=== PATIENT | male | born 1955 | race Caucasian/White ===

== ENCOUNTER 2019-04-16 09:27 | Outpatient (CLI) | payer MEDICARE, SELFPAY ==
--- NOTE | 2019-04-16 09:38 | USCV_ITS ---
Landon Johnson Age: 63 Gender: M : 1955 Exam Date: 04/16/2019 09:47 Ordering Phys: Royce Cho Technologist: Mendy An Exam [place] [facility] [place]ication: ESSENTIAL HTN BP: 169 / 97 HR: 63 Rhythm: Sinus Technical Quality: Good MEASUREMENTS (Male / Female) Normal Values 2D ECHO LV Diastolic Diameter PLAX 5.0 cm 4.2 - 5.9 / 3.9 - 5.3 cm LV Systolic Diameter PLAX 2.7 cm LV Chamber Size 4.9 cm IVS Diastolic Thickness 1.0 cm 0.6 - 1.0 / 0.6 - 0.9 cm IVS Systolic Thickness 1.1 cm LVPW Diastolic Thickness 0.9 cm 0.6 - 1.0 / 0.6 - 0.9 cm LVPW Systolic Thickness 1.2 cm RV Chamber Size 3.5 cm LVOT Diameter 2.0 cm LV Ejection Fraction 2D Teich 76.7 % LV Ejection Fraction MOD 2C 65.3 % LV Ejection Fraction 2C AL 65.7 % LA Diameter 4.5 cm LA Width 3.1 cm LA Height 4.8 cm RA Width 3.8 cm RA Height 4.1 cm M-MODE LV Diastolic Diameter MM 6.6 cm 4.2 - 5.9 / 3.9 - 5.3 cm LV Systolic Diameter MM 4.6 cm LV Ejection Fraction MM Teich 55.9 % IVS Diastolic Thickness MM 0.9 cm 0.6 - 1.0 / 0.6 - 0.9 cm IVS Systolic Thickness MM 1.0 cm LVPW Diastolic Thickness MM 0.7 cm 0.6 - 1.0 / 0.6 - 0.9 cm LVPW Systolic Thickness MM 1.5 cm RV Diastolic Diameter MM 1.9 cm Aortic Annulus Diameter 2.8 cm LA Ao Ratio MM 1.6 MV E Point Septal Separation 0.1 cm DOPPLER AV Peak Velocity 183.0 cm/s LVOT Peak Velocity 145.0 cm/s AV Area Cont Eq vti 1.8 cm squared AV Area Cont Eq pk 2.5 cm squared MV Area PHT 2.1 cm squared Mitral E to A Ratio 0.6 MV E' Velocity 9.0 cm/s Mitral E to MV E' Ratio 8.3 Mitral E to LV E' Lateral Ratio 7.8 Mitral E to LV E' Septal Ratio 8.8 TR Peak Velocity 238.9 cm/s TR Peak Gradient 22.8 mmHg TR Mean Velocity 203.4 cm/s TR Mean Gradient 17.2 mmHg TR Velocity Time Integral 74.6 cm TV Peak E Velocity 71.0 cm/s Right Atrial Pressure 3.0 mmHg Pulmonary Artery Systolic Pressu 25.8 mmHg PV Peak Velocity 75.0 cm/s FINDINGS Left Ventricle Normal left ventricular cavity size. Normal left ventricular systolic function. No regional wall motion abnormalities. Left ventricular ejection fraction is estimated at 65 %.Grade I/IV diastolic dysfunction (abnormal relaxation filling pattern), normal to mildly elevated filling pressures. Right Ventricle The right ventricle is normal in size and function. Right Atrium The right atrium is normal in size. Left Atrium The left atrium is normal in size. Mitral Valve Structurally normal mitral valve without significant stenosis or prolapse. There is no mitral regurgitation. Aortic Valve Structurally normal aortic valve without significant sclerosis or stenosis. There is no aortic regurgitation. Tricuspid Valve Structurally normal tricuspid valve without significant stenosis or regurgitation. Pulmonary artery systolic pressure is normal. Pulmonic Valve Structurally normal pulmonic valve without significant stenosis. There is no pulmonic regurgitation. Pericardium Normal pericardium without effusion. Aorta Normal ascending aorta dimension. CONCLUSIONS 1-Normal left ventricular cavity size. Normal left ventricular systolic function. No regional wall motion abnormalities. Left ventricular ejection fraction is estimated at 65 %.Grade I/IV diastolic dysfunction (abnormal relaxation filling pattern), normal to mildly elevated filling pressures. 2-There is no pericardial effusion. 3-No significant valve abnormalities. 4-Pulmonary artery systolic pressure is within normal limits. 5-Right atrial pressure is around 5 mm of mercury. 6-There are no prior echocardiogram studies to compare. Tomeka Cosby MD (Electronically Signed) Final Date: 16 April 2019 19:19 S
== END 2019-04-16 09:28 | disposition home or self-care (01) ==
LOC: RAD 09:33
DX: I10 Essential (primary) hypertension (principal)
CPT/HCPCS: 93306

== ENCOUNTER 2019-05-20 19:34 | Emergency (ER) | payer MEDICARE, SELFPAY ==
[2019-05-20 19:37] VITALS: BP 184/120; PULSE 84; RESP 18; TEMP 36.7; O2SAT 95; BMI 23.6
--- NOTE | 2019-05-20 20:39 | XR_ITS ---
WS: [id number] XR chest 1V portable [id number] REASON FOR EXAM: chest pain FINDINGS: The heart was not enlarged. Arteriosclerotic changes in the arch of the aorta are seen. The lung meeks are well aerated. No pneumonia, pleural effusion, pulmonary edema, or mass effect. The hilum and apices are normal. No osseous abnormalities. XR/XR chest 1V portable [id number] IMPRESSION: Negative chest for active pathology.
--- NOTE | 2019-05-20 20:39 | ECG_ITS ---
Measurements Intervals [place] Rate: 79 P: 80 MO: 139 QRS: 38 QRSD: 93 T: 27 QT: 376 QTc: 432 SINUS RHYTHM POSSIBLE LEFT ATRIAL ENLARGEMENT [-0.1mV P WAVE IN V1/V2] LEFT VENTRICULAR HYPERTROPHY AND ST-T CHANGE [VOLTAGE CRITERIA PLUS ST/T AB ABNORMALITY] Compared to ECG 01/07/2017 22:43:49 Left ventricular hypertrophy now present ST (T wave) deviation now present T-wave abnormality no longer present Electronically Signed On 05-21-2019 17:08:23 TOOL FILER HAND by Fay Moreau M.D. [email or web address]
[2019-05-20 20:56] LABS: Basophils % 0.4 %; Eosinophils # 0.2 10^3/uL (0.0-0.8); Eosinophils % 2.1 %; Hematocrit 42.6 % (42.0-52.0); Hemoglobin 14.5 g/dL (11.7-16.6); Lymphocytes # 2.9 10^3/uL (0.8-4.8); Lymphocytes % 30.6 %; Mean Corpuscular Volume 88.2 fL (80-94); Mean Platelet Volume 10.1 fL (7.4-10.4); Monocytes # 0.7 10^3/uL (0.2-0.9); Monocytes % 7.8 %; Neutrophils # 5.5 10^3/uL (1.8-7.7); Neutrophils % 58.9 %; Nucleated Red Blood Cells % 0 %; Platelet Count 201 10^3/cmm (130-400); Red Blood Count 4.83 10^6/uL (4.1-5.3); Red Cell Distribution Width 13.2 % (12.1-15.1); White Blood Count 9.4 10^3/uL (4.0-10.0)
[2019-05-20 21:04] LABS: INR 0.98 (0.8-1.2)
[2019-05-20 21:07] LABS: D Dimer 0.46 ug/mIFEU (0-0.59)
--- NOTE | 2019-05-20 21:20 | ED_ITS ---
Entered by Zoe Kaufman, acting as scribe for Ollie Maharaj [place] [facility] [place] 19:34 HPI - Chest Pain General: Chief Complaint: Chest Pain Stated Complaint: chest pain Time Seen by Provider: 05/20/19 21:20 Source: patient and RN notes reviewed Mode of arrival: ambulatory Limitations: no limitations History of Present Illness: HPI narrative: 63 yo male presents to ED with complaints of chest pain. He said this began 3 days ago. MD complaint: chest pain Onset (ago): day(s) (3) [facility] PFSH: Medical History (Updated 04/25/19 @ 09:52 by Thee Espinoza MD) Chronic hepatitis C Social History Smoking and tobacco status: current every day smoker Household members: spouse Housing: House Marital status: Course Vital Signs: Vital signs: Vital Signs Temperature 98.1 F 05/20/19 19:37 Pulse Rate 84 05/20/19 19:37 Respiratory Rate 18 05/20/19 19:37 Blood Pressure 184/120 05/20/19 19:37 Pulse Oximetry 95 05/20/19 19:37 MDM - Chest Pain Lab Data: Labs: Lab Results 05/20/19 05/20/19 05/20/19 Range/Units 20:49 20:49 20:49 WBC 9.4 (4.0-10.0) 10^3/ uL RBC 4.83 (4.1-5.3) 10^6/u L Hgb 14.5 (11.7-16.6) g/dL Hct 42.6 (42.0-52.0) % MCV 88.2 (80-94) fL MCH 30.0 (28.0-34.0) pg MCHC 34.0 (30.0-36.0) g/dL RDW 13.2 (12.1-15.1) % Plt Count 201 (130-400) 10^3/c mm MPV 10.1 (7.4-10.4) fL Neut % (Auto) 58.9 % Lymph % (Auto) 30.6 % [place] % (Auto) 7.8 % Eos % (Auto) 2.1 % Baso % (Auto) 0.4 % Neut # (Auto) 5.5 (1.8-7.7) 10^3/u L Lymph # (Auto) 2.9 (0.8-4.8) 10^3/u L [place] # (Auto) 0.7 (0.2-0.9) 10^3/u L Eos # (Auto) 0.2 (0.0-0.8) 10^3/u L Baso # (Auto) 0.0 (0.0-0.1) 10^3/u L Nucleated RBC % (a uto) 0 % Nucleated RBCs # 0.0 /100WBC PT 13.20 (10.5-13.3) SECO NDS INR 0.98 (0.8-1.2) APTT 29.0 (23.9-36.7) SECO NDS D-Dimer 0.46 (0-0.59) ug/mIFE U Troponin T Baselin e 17 H (0-15) ng/mL Discharge Plan Discharge Prescriptions: No Action sofosbuvir-velpatasvir [Epclusa] 400-100 mg tablet 1 tab PO ONCE RF: 0 clonidine HCl 0.2 mg Tablet 0.2 mg PO BID RF: 0 Coding Level of Care Code ED Medical Numerical Control Operator for Juan Larsen
[2019-05-20 21:21] LABS: Troponin(5th) Baseline 17 ng/mL (0-15)
[2019-05-20 21:30] LABS: Alanine Aminotransferase 11 U/L (0-41); Alkaline Phosphatase 75 IU/L (40-130); Anion Gap 17.6 (5-19); Aspartate Amino Transferase 21 U/L (0-40); Blood Urea Nitrogen 10 mg/dL (8-23); Calcium 9.6 mg/dL (8.5-10.5); Carbon Dioxide 23 mmol/L (22-29); Chloride 98 mmol/L (98-107); Creatine Phosphokinase 107 U/L (39-308); Globulin 3.4 g/dL (1.3-4.6); Glucose 226 mg/dL (65-115); Lipase 35 U/L (13-60); NT Pro B Type Natriuretic Pept 223 pg/mL (0-125); Osmolality Calculated 283 mOsm/kg (285-295); Potassium 3.6 mmol/L (3.5-5.1); Sodium 135 mmol/L (136-145); Total Bilirubin 0.3 mg/dL (0.15-1.2); Total Protein 7.4 g/dL (6.6-8.7)
--- NOTE | 2019-05-20 21:31 | ED_ITS ---
Entered by Fiona Pringle, acting as scribe for Loraine Bains May 20, 2019 19:34 HPI - Chest Pain General: Chief Complaint: Chest Pain Stated Complaint: chest pain Time Seen by Provider: 05/20/19 21:20 Source: patient Mode of arrival: ambulatory History of Present Illness: HPI narrative: 63 y/o male presents to the ED with complaint of chest pain. Pt states this started 3 hours ago while he was laying in bed. Pt had sharp, stabbing pain in the center of his chest and SOB. Pt denies N/V. He has hx of Hep C and HTN. Upon exam, pt states his pain has subsided. MD complaint: chest pain Onset (ago): hour(s) (3) Timing of current episode: constant and now resolved Onset: during rest Quality: sharp Associated symptoms: Deny abdominal pain, diaphoresis, dyspnea, fever(s), nausea or vomiting Review of Systems General: Reports: other (negative unless marked) Const: Denies: fever, chills, body aches, fatigue, malaise or diaphoresis Eyes: Denies: change in vision or blurry vision ENMT: Denies: throat pain, painful swallowing, hoarseness, ear pain, ear discharge, Change in hearing or nasal discharge Resp: Denies: shortness of breath, productive cough, non-productive cough, wheezing, coughing up blood or chest congestion GI: Denies: abdominal pain, nausea, vomiting, vomiting blood, coffee grounds in vomit, diarrhea, constipation, cramping, blood in stool or black tarry stool : Denies: flank pain, difficulty urinating, painful urination, urinary frequency, urinary urgency, decreased urine ouput, urinary incontinence or blood in urine Musc: Denies: neck pain, back pain, extremity pain, extremity swelling, joint pain, joint swelling, joint warmth or joint stiffness Skin/Breast: Denies: rash, skin tenderness or yellow skin Neuro: Denies: headache, numbness in extremities, weakness in extremities, changes in sensation, lack of coordination, difficulty walking, dizziness, vertigo or confusion Endo: Denies: excessive thirst, tired all the time, cold intolerance, excessive sweating, flushing or hot flashes [place]/Lymph: Denies: easy bruising, easy bleeding, petechiae or enlarged lymph nodes All/Imm: Denies: hives, throat swelling, tongue swelling, facial swelling or acute wheezing PFSH ED PFSH: Medical History (Updated 05/21/19 @ 02:58 by Mary Ann Collins MD) Chronic hepatitis C Hypertension Family History Other Diabetes Heart disease Social History Smoking and tobacco status: current every day smoker Household members: spouse Housing: House Marital status: Physical Exam Const: COMMON NORMALS: no apparent distress, oriented x3, no limitations, healthy appearing and well nourished EXAM LIMITATIONS: no altered mental status ORIENTATION/CONSCIOUSNESS: Yes awake HENMT: COMMON NORMALS: normocephalic, head/scalp atraumatic, hearing grossly normal bilaterally, external ears normal, EAC's normal, external nose normal and moist oral mucous membranes HEAD & SCALP: normal to inspection, normocephalic and atraumatic FACE & SINUS: normal facial exam and face symmetric NOSE: external nose normal and nares normal EXTERNAL EAR: Yes external ears normal EXTERNAL AUDITORY CANAL: EAC's normal MOUTH: oral and palatal mucosa normal and tongue normal Eye: COMMON NORMALS: PERRL, EOMs intact bilaterally, conjunctivae normal and no scleral icterus GENERAL EYE: normal appearance of both eyes and normal light reflex CONJUNCTIVA: Yes conjunctivae normal SCLERA: sclerae normal CORNEA: Yes corneas normal PUPIL: Yes PERRL DIRECT OPHTHALMOSCOPY: Yes normal light reflex Neck/C-Spine: COMMON NORMALS: full ROM, no lymphadenopathy, supple, no meningeal signs and no JVD GENERAL: Yes normal visual inspection and Yes trachea midline CERVICAL SPINE: Yes cervical ROM normal Chest: COMMONS NORMALS: inspection of chest normal and palpation of chest normal Resp: COMMON NORMALS: normal respiratory effort, no retractions, no use of accessory muscles and clear to auscultation bilaterally EFFORT & INSPECTION: Yes able to speak in complete sentences AUSCULTATION: clear to auscultation bilaterally Cardio: COMMON NORMALS: no JVD, regular rate, regular rhythm, S1 normal heart sound, S2 normal heart sound, no gallops, no clicks, no murmurs and no rub JUGULAR VENOUS DISTENTION: no JVD RATE: regular rate RHYTHM: regular rhythm HEART SOUNDS: S1 normal and S2 normal GI: COMMON NORMALS: soft to palpation, non-tender, no hepatosplenomegaly and no masses INSPECTION: Yes normal to inspection PALPATION: Yes soft and Yes no hepatosplenomegaly : COMMON NORMALS: Yes no CVA tenderness BLADDER/KIDNEY EXAM: Yes no CVA tenderness Back/Pelvis: COMMON NORMALS: no CVA tenderness, thoracic and lumbar spine normal to inspection, no thoracic nor lumbar tenderness and thoraco-lumbar ROM normal Extremity: COMMON NORMALS: normal to inspection, full ROM, normal capillary refill, no joint enlargement, no clubbing, cyanosis or edema and no calf tenderness Neuro: COMMON NORMALS: oriented x3, CN's II-XII intact bilaterally, moves all extremities, no focal motor deficits and no sensory deficits noted MENINGEAL SIGNS: Yes no meningeal signs Psych: COMMON NORMALS: mental status grossly normal, thought process normal, cooperative, affect normal, speech normal and activity/motor behavior normal SPEECH: Yes normal speech THOUGHT PROCESS: normal thought process Skin: COMMON NORMALS: no rashes or lesions noted, skin turgor normal, no jaundice, no petechiae and no mottling GENERAL SKIN EXAM: no rashes or lesions noted and turgor normal Course Vital Signs: Vital signs: Vital Signs Temperature 98.1 F 05/20/19 19:37 Pulse Rate 79 05/21/19 01:14 Respiratory Rate 16 05/21/19 01:14 Blood Pressure 168/100 05/21/19 01:14 Pulse Oximetry 93 05/21/19 01:14 MDM - Chest Pain MDM Narrative: Medical decision making narrative: Patient's chest pain has resolved spontaneously. He has a baseline abnormal EKG unchanged x2. Chest x- ray was unremarkable. Cardiac enzymes are slightly elevated have gone up but not a significant amount. At this time I believe we will need to go ahead and put him in for rule out. He says he had a recent stress test but this cannot be found. The case was endorsed to Dr. Collins and she is in agreement. Patient has a heart score of 5. I was notified later that the patient was refusing to stay. It was recommended to him to do so by Dr. Collins. She discussed with him his risks and ultimately he signed out AGAINST MEDICAL ADVICE and was allowed to go home. Lab Data: Labs: Lab Results 05/20/19 05/20/19 05/20/19 Range/Units 20:49 20:49 20:49 WBC 9.4 (4.0-10.0) 10^3/ uL RBC 4.83 (4.1-5.3) 10^6/u L Hgb 14.5 (11.7-16.6) g/dL Hct 42.6 (42.0-52.0) % MCV 88.2 (80-94) fL MCH 30.0 (28.0-34.0) pg MCHC 34.0 (30.0-36.0) g/dL RDW 13.2 (12.1-15.1) % Plt Count 201 (130-400) 10^3/c mm MPV 10.1 (7.4-10.4) fL Neut % (Auto) 58.9 % Lymph % (Auto) 30.6 % [place] % (Auto) 7.8 % Eos % (Auto) 2.1 % Baso % (Auto) 0.4 % Neut # (Auto) 5.5 (1.8-7.7) 10^3/u L Lymph # (Auto) 2.9 (0.8-4.8) 10^3/u L [place] # (Auto) 0.7 (0.2-0.9) 10^3/u L Eos # (Auto) 0.2 (0.0-0.8) 10^3/u L Baso # (Auto) 0.0 (0.0-0.1) 10^3/u L Nucleated RBC % (a uto) 0 % Nucleated RBCs # 0.0 /100WBC PT 13.20 (10.5-13.3) SECO NDS INR 0.98 (0.8-1.2) APTT 29.0 (23.9-36.7) SECO NDS D-Dimer 0.46 (0-0.59) ug/mIFE U Sodium 135 L (136-145) mmol/L Potassium 3.6 (3.5-5.1) mmol/L Chloride 98 (98-107) mmol/L Carbon Dioxide 23 (22-29) mmol/L Anion Gap 17.6 (5-19) BUN 10 (8-23) mg/dL Creatinine 1.2 (0.7-1.2) mg/dL GFR Calculation 61.0 L (90-130) mL/min Glucose 226 H (65-115) mg/dL Calculated Osmolal ity 283 L (285-295) mOsm/k g Calcium 9.6 (8.5-10.5) mg/dL Total Bilirubin 0.3 (0.15-1.2) mg/dL AST 21 (0-40) U/L ALT 11 (0-41) U/L Alkaline Phosphata se 75 (40-130) IU/L Creatine Kinase 107 (39-308) U/L Troponin T Baselin e (0-15) ng/mL Troponin T 120 Min gustavo (0-15) ng/mL Delta Troponin T (0-10) ABS# NT-Pro-B Natriuret Pep 223 H (0-125) pg/mL Total Protein 7.4 (6.6-8.7) g/dL Albumin 4.0 (3.5-5.2) g/dL Globulin 3.4 (1.3-4.6) g/dL Lipase 35 (13-60) U/L Urine Color (Yellow) Urine Appearance (CLEAR) Urine pH (5-7) Ur Specific Gravit y (1.005-1.030) Urine Protein (Negative) Urine Glucose (UA) (Normal) Urine Ketones (Negative) Urine Occult Blood (Negative) Urine Nitrate (Negative) Urine Bilirubin (NEGATIVE) Urine Urobilinogen (Negative) mg/dL Ur Leukocyte Lidia ase (Negative) Urine RBC (0-2) /hpf Urine WBC (0-5) /hpf Ur Squamous Epith Cells (0-5) Ur Transition Epit h Cell /hpf Urine Bacteria (NONE) Digoxin 0.3 L (0.6-1.2) ng/mL Ethyl Alcohol < 10 (0-10) mg/dL 05/20/19 05/20/19 05/20/19 Range/Units 20:49 22:49 23:20 WBC (4.0-10.0) 10^3/ uL RBC (4.1-5.3) 10^6/u L Hgb (11.7-16.6) g/dL Hct (42.0-52.0) % MCV (80-94) fL MCH (28.0-34.0) pg MCHC (30.0-36.0) g/dL RDW (12.1-15.1) % Plt Count (130-400) 10^3/c mm MPV (7.4-10.4) fL Neut % (Auto) % Lymph % (Auto) % [place] % (Auto) % Eos % (Auto) % Baso % (Auto) % Neut # (Auto) (1.8-7.7) 10^3/u L Lymph # (Auto) (0.8-4.8) 10^3/u L [place] # (Auto) (0.2-0.9) 10^3/u L Eos # (Auto) (0.0-0.8) 10^3/u L Baso # (Auto) (0.0-0.1) 10^3/u L Nucleated RBC % (a uto) % Nucleated RBCs # /100WBC PT (10.5-13.3) SECO NDS INR (0.8-1.2) APTT (23.9-36.7) SECO NDS D-Dimer (0-0.59) ug/mIFE U Sodium (136-145) mmol/L Potassium (3.5-5.1) mmol/L Chloride (98-107) mmol/L Carbon Dioxide (22-29) mmol/L Anion Gap (5-19) BUN (8-23) mg/dL Creatinine (0.7-1.2) mg/dL GFR Calculation (90-130) mL/min Glucose (65-115) mg/dL Calculated Osmolal ity (285-295) mOsm/k g Calcium (8.5-10.5) mg/dL Total Bilirubin (0.15-1.2) mg/dL AST (0-40) U/L ALT (0-41) U/L Alkaline Phosphata se (40-130) IU/L Creatine Kinase (39-308) U/L Troponin T Baselin e 17 H (0-15) ng/mL Troponin T 120 Min gustavo 19.49 H (0-15) ng/mL Delta Troponin T 2.49 (0-10) ABS# NT-Pro-B Natriuret Pep (0-125) pg/mL Total Protein (6.6-8.7) g/dL Albumin (3.5-5.2) g/dL Globulin (1.3-4.6) g/dL Lipase (13-60) U/L Urine Color Yellow (Yellow) Urine Appearance Clear (CLEAR) Urine pH 6 (5-7) Ur Specific Gravit y 1.005 (1.005-1.030) Urine Protein Neg (Negative) Urine Glucose (UA) Norm (Normal) Urine Ketones Negative (Negative) Urine Occult Blood 2+ H (Negative) Urine Nitrate Negative (Negative) Urine Bilirubin Neg (NEGATIVE) Urine Urobilinogen Norm (Negative) mg/dL Ur Leukocyte Lidia ase Negative (Negative) Urine RBC 0-4 H (0-2) /hpf Urine WBC None (0-5) /hpf Ur Squamous Epith Cells 0-4 H (0-5) Ur Transition Epit h Cell None /hpf Urine Bacteria Trace (NONE) Digoxin (0.6-1.2) ng/mL Ethyl Alcohol (0-10) mg/dL Imaging Data^: CXR: My impression: No acute cardiopulmonary findings. EKG Data^: EKG 1: Interpretation: Normal sinus rhythm at 79 beats a minute, ST depression 2, 3, aVF and V6. Unchanged from previous. LVH. EKG 2: Interpretation: Normal sinus rhythm at 68 beats a minute, LVH, no blocks, ST depression mild in 2, 3, aVF and V6. Unchanged from previous. Discharge Plan Discharge Patient Disposition: Placed in Observation Clinical Impression: Chest pain Qualifiers: Chest pain type: unspecified Qualified Code(s): R07.9 - Chest pain, unspecified Condition: Stable Referrals: Royce Cho [Primary Care Provider] - Discharge Date/Time: 05/21/19 01:43 Coding Level of Care Code ED Cafe Worker for Chg Fwd Exam Comprehensive The documentation recorded by the Pino chacon Ashley, accurately reflects the service I personally performed and the decisions made by Herson limon Eli N May 20, 2019 19:34
[2019-05-20 21:45] LABS: Alcohol Level < 10 mg/dL (0-10)
--- NOTE | 2019-05-20 21:46 | PC.NURSE ---
patient states his chest pain started three and a half hours ago and is located in his right chest. patient states he will not take aspirin and that he drinks coffee all day and night long. Patient is not cooperative with staff.
[2019-05-20 21:49] VITALS: BP 171/115; PULSE 69; RESP 16; O2SAT 92
[2019-05-20 22:04] VITALS: BP 138/105; PULSE 71; RESP 16; O2SAT 94
--- NOTE | 2019-05-20 22:07 | PC.NURSE ---
Patient stated to nurse that he did not want an IV, aspirin, and stated he was not having any chest pain at this time. Patient stated that he did not know why he would need the nitro and was uncooperative with the nurse. Patient stated he was not going to provide a urine sample to the nurse and stated that he wanted coffee. Nurse informed patient that he was NPO until the doctor cleared him for drinking/eating once all tests were completed and interpreted.
--- NOTE | 2019-05-20 22:39 | ECG_ITS ---
Measurements Intervals [place] Rate: 68 P: 67 IN: 152 QRS: 49 QRSD: 92 T: 14 QT: 414 QTc: 441 SINUS RHYTHM LEFT VENTRICULAR HYPERTROPHY AND ST-T CHANGE [VOLTAGE CRITERIA PLUS ST/T ABNORMALITY] Compared to ECG 01/07/2017 22:43:49 Left ventricular hypertrophy now present ST (T wave) deviation now present T-wave abnormality no longer present Electronically Signed On 05-21-2019 18:04:53 UI DEVELOPER WITH ANGULAR JS by Fay Moreau M.D. [email or web address]
[2019-05-20] MEDS: sodium chloride 0.9% 1,000 ML 999 ML IV (23:15)
[2019-05-20 23:20] VITALS: BP 191/111; PULSE 66; RESP 16; O2SAT 91
[2019-05-20 23:24] LABS: Troponin 5 2HR 19.49 ng/mL (0-15); Troponin 5 2HR Delta 2.49 ABS# (0-10)
[2019-05-20 23:59] VITALS: BP 187/116; PULSE 68; RESP 16; O2SAT 95
[2019-05-21] VITALS: PULSE 66; RESP 16; O2SAT 94
--- NOTE | 2019-05-21 00:02 | PC.NURSE ---
PATIENT REFUSED GOWN
[2019-05-21 00:11] LABS: Digoxin 0.3 ng/mL (0.6-1.2)
--- NOTE | 2019-05-21 00:41 | PC.NURSE ---
PATIENT STATED HE WAS GOING OUTSIDE TO NURSE, NURSE INFORMED CHARGE NURSE THAT PATIENT WAS OFF UNIT.
[2019-05-21 00:46] LABS: Glucose Urine UA Norm (Normal); Ketones Urine Negative (Negative); Nitrate Urine Negative (Negative); Protein Urine Neg (Negative); Specific Gravity, Urine 1.005 (1.005-1.030); Urine Appearance Clear (CLEAR); Urine Color Yellow (Yellow); pH Urine 6 (5-7)
[2019-05-21 00:47] LABS: Add Urine Microscopic? YES; Bilirubin Urine Neg (NEGATIVE); Blood Urine 2+ (Negative); Leukocyte Esterase Urine Negative (Negative); Urobilinogen Urine Norm (Negative)
[2019-05-21 00:48] LABS: Add Urine Culture? No; Bacteria Urine TRACE; RBC Urine 0-4 /hpf (0-2); Squamous Epithelial Cell Urine 0-4 (0-5)
[2019-05-21] MEDS: nitroglycerin 1 gm/inch oint Pkt 1 INCH TOPICAL (00:54)
[2019-05-21 00:56] VITALS: PULSE 75; RESP 14; O2SAT 93
[2019-05-21 01:14] VITALS: BP 168/100; PULSE 79; RESP 16; O2SAT 93
--- NOTE | 2019-05-21 02:08 | P.CONIM_ITS ---
Providers/Reason For Consult Consulting Physican/Specialty*: Mary Ann Collins MD Hospitalist Reason for Consult*: Chest pain Requesting Physcian: Dr. Loraine Bains Primary Care Provider: Royce Cho History of Present Illness History of Present Illness Landon Johnson is a 63 year old male with a past medical history of hepatitis C, chronic smoking and hypertension, currently on treatment with sofosbuvir- velpatasvir started approximately 1 month ago. He presents to the ER today complaining of chest pain which started this evening. He was sitting in the couch watching TV when he started to experience midsternal chest pain, approximately 6 on 10 intensity with no apparent exa cerbating factor. It was also associated with a feeling of inability to catch his breath. No history of radiation into the neck arms back or jaw. He presented to the ED because he was concerned about the chest pain being a potential side effect of his hep C medication. While driving in his truck, he rolled down the windows and he is thinks that getting some fresh air relieved him of his pain. He has been pain-free since arrival into the ER. Blood pressure at this time is 168/100, heart rate 79, he is afebrile and saturating 93 to 96% on room air. He has no past history of coronary artery disease. States that he previously had similar chest pain and underwent a cardiac stress test here at [facility] [place] about 6 months ago. However I am unable to find a record of the stress test at this time. Diagnostics in the ED have included an EKG show any acute ST-T changes. Baseline troponin is at 17 with repeat at 19.49 and delta of 2.4. D-dimer is negative at 0.46. He is currently chest pain-free. Denies any current shortness of breath. Reports multiple stressors at home. Review of Systems General: Reports: 10 or more systems reviewed and unremarkable except in HPI and below Const: Denies: fever, chills or body aches Eyes: Denies: change in vision, blurry vision or photophobia ENMT: Reports: hoarseness; Denies: throat pain, enlarged tonsils, painful swallowing or nasal congestion Card: Reports: chest pain; Denies: palpitations, irregular heart rhythm, edema, swelling of feet/ankles, lightheadedness, pre-syncope, shortness of breath on exertion or shortness of breath when lying down Resp: Reports: shortness of breath; Denies: productive cough, non-productive cough, wheezing, stridor, pain on inspiration, change in phlegm color, coughing up blood or chest congestion GI: Denies: abdominal pain, nausea, vomiting, vomiting blood, coffee grounds in vomit, difficulty swallowing, heartburn/indigestion, diarrhea, constipation, cramping, change in stool character, blood in stool or black tarry stool : Denies: flank pain, painful urination, urinary frequency, urinary urgency, urinary hesitancy or blood in urine Musc: Denies: neck pain, back pain, extremity pain, joint swelling, joint warmth or deformity Neuro: Denies: headache, numbness in extremities, weakness in extremities, changes in sensation, difficulty walking, frequent falls, dizziness, vertigo, behavioral changes, slurred speech or seizure-like activity Psych: Denies: anxiety, depression, suicidal ideation or homicidal ideation Endo: Denies: excessive urination, excessive thirst, tired all the time, cold intolerance or hot flashes Luis Miguel/Lymph: Denies: easy bruising or easy bleeding Meds/Allergies Home Medications and Allergies Home Medications Medication Instructions Recorded Confirmed Type sofosbuvir 400 mg-velpatasvir 100 1 tab PO ONCE 04/12/19 04/25/19 History mg tablet clonidine HCl 0.2 mg PO BID 05/20/19 05/20/19 History Allergies Allergy/AdvReac Type Severity Reaction Status Date / Time No Known Allergies Allergy Verified 04/25/19 09:17 PFSH Acute PFSH: Medical History (Updated 05/21/19 @ 02:58 by Mary Ann Collins MD) Chronic hepatitis C Hypertension Family History Other Diabetes Heart disease Social History Smoking and tobacco status: current every day smoker Household members: spouse Housing: House Marital status: Vitals/I&O/Wt Last Vital Signs Temp 98.1 F 05/20/19 19:37 Pulse 79 05/21/19 01:14 Resp 16 05/21/19 01:14 BP 168/100 05/21/19 01:14 Pulse Ox 93 05/21/19 01:14 05/20/19 05/20/19 05/21/19 14:59 22:59 06:59 Intake Total 1000 / 1000 Balance 1000 / 1000 Weight last 48 hrs Weight 83.461 kg Physical Exam Narrative: EXAM NARRATIVE: GEN: Awake, alert and oriented, no acute distress CVS: S1S2 N RS: CTA B/L Abd: Soft, nt/nd , bs+ [employer]ACH[employer]: no focal neuro deficits A&P Assessment and plan (1) Hypertension: Status: Acute Code(s): I10 - Essential (primary) hypertension (2) Chest pain: Status: Acute Qualifiers: Chest pain type: unspecified Qualified Code(s): R07.9 - Chest pain, unspecified Code(s): R07.9 - Chest pain, unspecified (3) Chronic hepatitis C: Status: Acute Qualifiers: Hepatic coma status: without hepatic coma Qualified Code(s): B18.2 - Chronic viral hepatitis C Code(s): B18.2 - Chronic viral hepatitis C Additional A&P Information Patient was recommended admission to [facility] on overnight observation. It was discussed with him that given his troponin and no acute ST-T changes, resolution of chest pain he is unlikely to be having an acute CO, however unstable angina cannot be excluded. It was recommended that he undergo stress test in the morning. However the patient is extremely concerned about undergoing a Lexiscan stress test as he does not want to put drugs in into his body without studying in detail about the effects of this drug . He states that his late brother had multiple chemical stress tests but a few days after undergoing one such stress test. He does not know what drugs were used, however this has made him extremely wary of getting a chemical stress test as he beleives it may have contributed to his brother's demise. The option of undergoing an exercise stress test was also discussed with him, however he states that the boots he is currently wearing would not allow him to do an exercise stress test. I did explain to him that this test may be performed with anti-slip socks, to which he stated he has chronic fractures in his feet and it is not possible for him to walk without shoes. He stated that he wanted to use his own athletic shoes for this test and would not want to proceed with it in the morning. He is additionally extremely upset that I am recommending a test that I do not perform and interpret myself and did not know all the pharmacological details of Lexiscan drugs. He states that he would rather wait until the morning to discuss further course of action with his primary care physician and Dr. Espinoza, who may additionally have results of his previous cardiac testing. He prefers to return home at this point and talk to his outpatient doctors in the morning. He will return to the ER should his symptoms recur overnight. Above discussed with Dr. Bains. Coding Level of Care Code Acute [employer] for g Fwd Diagnoses Hypertension I10 Chest pain R07.9 Chest pain type: unspecified Chronic hepatitis C B18.2 Hepatic coma status: without hepatic coma
== END 2019-05-21 01:43 | disposition still patient (30) ==
PROVIDERS: Emergency Provider Emergency Medicine
DX: R07.9 Chest pain, unspecified (principal); I10 Essential (primary) hypertension; B18.2 Chronic viral hepatitis C; F17.200 Nicotine dependence, unspecified, uncomplicated; Z82.49 Family history of ischemic heart disease and other diseases of the circulatory system; Z53.29 Procedure and treatment not carried out because of patient's decision for other reasons
CPT/HCPCS: 12345; 36415; 71045; 80048; 80053; 80162; 80307; 81001; 82550; 83690; 83880; 84484; 85025; 85378; 85610; 85730; 93005; 96360; 96361; 99283; 99285; J7030

== ENCOUNTER → 2019-05-22 12:57 | Outpatient (BNVA) | payer MEDICARE, SELFPAY | PROVIDERS: Visit Provider Internal Medicine | DX: Z01.89 Encounter for other specified special examinations (principal) ==